=== PATIENT | male | born 1960 | race Caucasian/White ===

== ENCOUNTER 2023-07-09 12:14 | Emergency (ER) | payer BC, SELFPAY ==
[~2023-07-09] VITALS: Ht 185.4 cm; Wt 104.1 kg
[~2023-07-09 12:14] MED LIST: IBUP80TA PO; LEVA1TAB2 PO; PROAAER10 INH; TESS100C PO
[2023-07-09 12:16] VITALS: TEMP 98
[2023-07-09] MEDS ORDERED: NOVOINJ2 SC (12:26)
[2023-07-09 13:15] LABS: BASO % 0.3 % (0.0-1.0); EOS # 0.1 10^3/uL (0.0-0.5); HEMATOCRIT 42.1 % (42.0-52.0); HEMOGLOBIN 14.7 g/dl (13.5-17.5); LYMPH # 1.2 10^3/uL (1.5-5.0); LYMPH % 32.1 % (24.0-44.0); MEAN CORPUSCULAR HEMOGLOBIN 30.6 pg (27.0-33.0); MEAN CORPUSCULAR HGB CONC 34.9 g/dl (32.0-36.5); MEAN CORPUSCULAR VOLUME 87.5 fl (80.0-96.0); MONO # 0.2 10^3/uL (0.0-0.8); MONO % 6.5 % (2.0-8.0); NEUTROPHILS # 2.1 10^3/uL (1.5-8.5); NEUTROPHILS % 58.1 % (36.0-66.0); RED BLOOD COUNT 4.81 10^6/uL (4.30-6.10); WHITE BLOOD COUNT 3.7 10^3/uL (4.0-10.0)
[2023-07-09 13:32] LABS: INR 1.03; PARTIAL THROMBOPLASTIN TIME 26.9 SECONDS (24.8-34.2); PROTHROMBIN TIME 13.2 SECONDS (12.5-14.5)
[2023-07-09 13:37] LABS: CK-MB VALUE MASS < 1.0 NG/ML (<3.6); LIPASE 51 U/L (12-53); PLATELET COUNT, AUTOMATED 57 10^3/uL (150-450)
[2023-07-09 13:41] LABS: FREE T4 0.75 NG/DL (0.89-1.76); THYROID STIMULATING HORMONE 1.233 uIU/ML (0.55-4.78)
[2023-07-09 13:42] LABS: ALBUMIN 3.5 G/DL (3.2-5.2); ALKALINE PHOSPHATASE 93 U/L (46-116); ALT/SGPT 14 U/L (7.0-40); AST/SGOT 19 U/L (<34); BILIRUBIN,DIRECT 0.1 MG/DL (<0.4); BILIRUBIN,TOTAL 0.4 MG/DL (0.3-1.2); BLOOD UREA NITROGEN 16 MG/DL (9-23); CALCIUM LEVEL 8.6 MG/DL (8.3-10.6); CARBON DIOXIDE LEVEL 24 MMOL/L (20-31); CHLORIDE LEVEL 102 MMOL/L (98-107); CPK CREATINE PHOSPHOKINASE 47 U/L (46-171); CREATININE FOR GFR 0.63 MG/DL (0.70-1.30); GLOMERULAR FILTRATION RATE > 60.0 (>49); GLUCOSE, FASTING 390 MG/DL (74-106); MB/CK RELATIVE INDEX 2.12 (< OR =4); POTASSIUM SERUM 4.5 MMOL/L (3.5-5.1); SODIUM LEVEL 137 MMOL/L (136-145); TOTAL PROTEIN 7.4 G/DL (5.7-8.2)
[2023-07-09 13:46] LABS: RSV AMPLIFICATION NEGATIVE (NEGATIVE)
[2023-07-09 14:27] LABS: CK-MB VALUE MASS < 1.0 NG/ML (<3.6)
[2023-07-09 14:29] VITALS: O2SAT 97
[2023-07-09 14:30] VITALS: BP 145/90
[2023-07-09 14:30] LABS: CPK CREATINE PHOSPHOKINASE 40 U/L (46-171)
[2023-07-09] MEDS ORDERED: HOLTER MONITOR XX (14:56)
[2023-07-09] MEDS ORDERED: FREE1MIS32 XX (14:59)
[2023-07-09] MEDS ORDERED: METF-839 PO (14:59)
[2023-07-09] MEDS ORDERED: FREE1KIT5 XX (14:59)
== END 2023-07-09 15:20 | disposition home or self-care (01) ==
LOC: M ED 12:14
DX: R00.2 Palpitations (principal); I45.2 Bifascicular block; D70.9 Neutropenia, unspecified; D69.6 Thrombocytopenia, unspecified; E11.9 Type 2 diabetes mellitus without complications; F17.200 Nicotine dependence, unspecified, uncomplicated; F10.10 Alcohol abuse, uncomplicated; Z79.84 Long term (current) use of oral hypoglycemic drugs; Z86.79 Personal history of other diseases of the circulatory system

== ENCOUNTER → 2023-07-11 | Outpatient (CLI) | payer BC ==
[~2023-07-11] MED LIST changes: +FREE1KIT5 XX; +FREE1MIS32 XX; +HOLTER MONITOR XX; +METF-839 PO; +NOVOINJ2 SC
== END ==
LOC: M EKG 16:48
PROVIDERS: ATTEND Emergency Medicine
DX: R00.2 Palpitations (principal); Z53.9 Procedure and treatment not carried out, unspecified reason